=== PATIENT | female | born 1935 | race Caucasian/White ===

== ENCOUNTER → 2017-01-18 | Outpatient (CLI) | payer OTHER | LOC: FIMAGING 10:19 | PROVIDERS: ATTEND Internal Medicine | DX: Z13.820 Encounter for screening for osteoporosis (principal); M81.0 Age-related osteoporosis without current pathological fracture ==

== ENCOUNTER → 2017-03-08 | Outpatient (CLI) | payer OTHER | LOC: CIMAGING 12:37 | PROVIDERS: ATTEND Physical Medicine & Rehabilitation | DX: M41.86 Other forms of scoliosis, lumbar region (principal); M46.96 Unspecified inflammatory spondylopathy, lumbar region; S33.140A Subluxation of L4/L5 lumbar vertebra, initial encounter | CPT/HCPCS: 72100-PO ==

== ENCOUNTER → 2017-04-19 | Outpatient (CLI) | payer OTHER | LOC: FIMAGING 10:14 | PROVIDERS: ATTEND Physical Medicine & Rehabilitation | DX: M51.26 Other intervertebral disc displacement, lumbar region (principal); M46.96 Unspecified inflammatory spondylopathy, lumbar region; M48.061 Spinal stenosis, lumbar region without neurogenic claudication ==

== ENCOUNTER → 2017-06-02 | Outpatient (CLI) | payer OTHER | LOC: FIMAGING 11:43 | PROVIDERS: ATTEND Physical Medicine & Rehabilitation Neuromuscular Medicine | DX: M51.36 Other intervertebral disc degeneration, lumbar region (principal); M51.37 Other intervertebral disc degeneration, lumbosacral region; M43.16 Spondylolisthesis, lumbar region ==

== ENCOUNTER → 2017-08-16 | Outpatient (CLI) | payer OTHER | LOC: FIMAGING 11:06 | PROVIDERS: ATTEND Physician Assistant Medical | DX: R90.82 White matter disease, unspecified (principal); R20.0 Anesthesia of skin; R29.898 Other symptoms and signs involving the musculoskeletal system ==